=== PATIENT | female | born 1945 | race Hispanic/Latino ===

== ENCOUNTER 2018-10-09 20:47 | Emergency (ER) | payer MEDICARE ==
[2018-10-09] MEDS ORDERED: NA CHLORIDE 0.9% 1,000 ML ONE (21:51)
[2018-10-09 22:31] LABS: Absolute Lymphocytes (CBC) 1.1 K/uL (0.7-4.9); Basophils % 0.7 % (0-1.3); Lymphocytes % 29.6 % (15.3-44.8); MPV 8.3 fL (7.6-11.3); Monocytes % 7.6 % (3.3-12.3); Protime INR 0.92; RBC Red Blood Cell Count 3.77 M/uL (3.86-4.86)
[2018-10-09 22:41] LABS: Urine Blood TRACE (NEG); Urine Glucose NEGATIVE (NEG); Urine Protein NEGATIVE (NEG)
[2018-10-09 22:49] LABS: ALT/SGPT 17 U/L (12-78); AST/SGOT 20 U/L (15-37); Albumin 3.4 g/dL (3.4-5.0); Alkaline Phosphatase 85 U/L (45-117); BUN Blood Urea Nitrogen 12 mg/dL (7-18); Bicarbonate 26 mmol/L (21-32); Bilirubin Direct < 0.1 mg/dL (0-0.2); Bilirubin Total 0.3 mg/dL (0.2-1.0); Glucose Level 94 mg/dL (74-106); Magnesium 2.4 mg/dL (1.8-2.4); NT PRO-BNP 234 pg/mL (<125); Protein, Total 7.7 g/dL (6.4-8.2); Sodium Level 139 mmol/L (136-145); Troponin (Emerg Dept Use Only) < 0.02 ng/mL (0.0-0.045)
--- NOTE | 2018-10-09 23:01 | ER ---
Nurse's Notes [facility] Name: Estrellita Gutierrez Age: 73 yrs Sex: Female : 1945 Arrival Date: 10/09/2018 Time: 20:50 Bed 23 Private MD: Diagnosis: Edema, unspecified;Cellulitis and acute lymphangitis of other parts of limb Presentation: 10/09 20:55 Presenting complaint: Patient states: that for the past 3 days she has been having fc swelling to both her ankles (left worse than right). Also having headaches, achy body and increased sweating. Transition of care: patient was not received from another setting of care. 20:55 Method Of Arrival: Ambulatory fc 21:09 Onset of symptoms was October 06, 2018. Risk Assessment: Do you want to hurt yourself or fc someone else? Patient reports no desire to harm self or others. Initial Sepsis Screen: Does the patient meet any 2 criteria?. Care prior to arrival: Medication(s) given: Motrin, 400 mg, last at 1700. 21:09 Acuity: ADY 3 22:23 Initial Sepsis Screen: Does the patient have a suspected source of infection?. mg2 Historical: - Allergies: 21:12 No Known Allergies; fc - Home Meds: 21:12 ibandronate 150 mg oral tab 1 tab once moly [Active]; levothyroxine 50 mcg tab 1 tab fc once daily [Active]; - PMHx: 21:12 Hypothyroidism; Osteoporosis; fc - PSHx: 21:12 Tubal ligation; bilateral feet surg; fc - Immunization history:: Last tetanus immunization: up to date. - Social history:: Smoking status: Patient/guardian denies using tobacco, Patient uses alcohol, occasionally. - Ebola Screening: : Patient negative for fever greater than or equal to 101.5 degrees Fahrenheit, and additional compatible Ebola Virus Disease symptoms Patient denies exposure to infectious person Patient denies travel to an Ebola-affected area in the 21 days before illness onset. - Family history:: not pertinent. Screenin:55 Abuse screen: Denies threats or abuse. Nutritional screening: No deficits noted. fc Tuberculosis screening: No symptoms or risk factors identified. Fall Risk None identified. Assessment: 22:07 Reassessment: patient sent to ultrasound. mg2 22:21 General: Appears in no apparent distress. comfortable, Behavior is calm, cooperative. mg2 Pain: Complains of pain in left leg and right leg Pain does not radiate. Pain currently is 2 out of 10 on a pain scale. Quality of pain is described as aching, Pain began gradually, 2-3 days ago. Is intermittent. Neuro: Level of Consciousness is awake, alert, obeys commands, Oriented to person, place, time, situation. Cardiovascular: Capillary refill < 3 seconds Patient's skin is warm and dry. Respiratory: Airway is patent Respiratory effort is even, unlabored, Respiratory pattern is regular, symmetrical. GI: No signs and/or symptoms were reported involving the gastrointestinal system. : No signs and/or symptoms were reported regarding the genitourinary system. EENT: No signs and/or symptoms were reported regarding the EENT system. Derm: Skin is intact, is healthy with good turgor, Skin is pink, warm \T\ dry. normal, redness in both lower leg. Musculoskeletal: Circulation, motion, and sensation intact. Capillary refill < 3 seconds, Swelling present in left leg and right leg. 23:22 Reassessment: Patient appears in no apparent distress at this time. Patient is alert, lp1 oriented x 3, equal unlabored respirations, skin warm/dry/pink. Patient and aware of pending discharge. Vital Signs: 20:55 BP 120 / 75; Pulse 74; Resp 18; Temp 98.7(O); Pulse Ox 97% on R/A; Weight 64.41 kg (R); fc Height 5 ft. 0 in. (152.40 cm) (R); Pain 6/10; 22:23 BP 115 / 76; Pulse 72; Resp 18; Temp 98.7; Pulse Ox 100% on R/A; mg2 23:23 BP 115 / 76; Pulse 72; Resp 14; Pulse Ox 98% on R/A; lp1 20:55 Body Mass Index 27.73 (64.41 kg, 152.40 cm) fc ED Course: 20:50 Patient arrived in ED. mr 20:55 Arm band placed on Patient placed in an exam room, on a stretcher. fc 20:55 Patient has correct armband on for positive identification. Placed in gown. Bed in low fc position. Call light in reach. Pulse ox on. NIBP on. 20:55 No provider procedures requiring assistance completed. fc 21:03 Rehan Clemens MD is Attending Physician. robert 21:07 Shin Romero, RN is Primary Nurse. mg2 21:10 Triage completed. fc 21:43 XRAY Chest (1 view) In Process Unspecified. EDMS 22:00 First set of blood cultures drawn by me, Second set of blood cultures drawn by me. mg2 22:20 US Extremity Venous W Compression Iván In Process Unspecified. EDMS 22:22 Inserted saline lock: 20 gauge in right antecubital area, using aseptic technique. mg2 22:45 Report received from SHUKRI Melissa. lp1 23:25 IV discontinued, No redness/swelling at site. Pressure dressing applied. lp1 Administered Medications: 22:20 Drug: NS 0.9% 1000 ml Route: IV; Rate: 125 ml/hr; Site: right antecubital; mg2 23:22 Follow up: IV Status: IV converted to saline lock lp1 23:10 Drug: Rocephin - (cefTRIAXone) 1 grams Route: IVPB; Infused Over: 30 mins; Site: right lp1 antecubital; 23:25 Follow up: IV Status: Completed infusion; IV Intake: 10ml lp1 23:10 Drug: Bactrim (160 mg-800 mg (DS) 1 tablet Route: PO; lp1 23:25 Follow up: Response: No adverse reaction lp1 23:10 Drug: Doxycycline 200 mg Route: PO; lp1 23:25 Follow up: Response: No adverse reaction lp1 Intake: 23:25 IV: 10ml; Total: 10ml. lp1 Outcome: 23:01 Discharge ordered by . [facility] 23:20 Discharged to home ambulatory, with significant other. lp1 23:20 Condition: good 23:20 Discharge instructions given to patient, significant other, Instructed on discharge instructions, follow up and referral plans. medication usage, Demonstrated understanding of instructions, follow-up care, medications, Prescriptions given X 3. 23:25 Patient left the ED. lp1 Signatures: Dispatcher [employer] EDTX Rehan Clemens MD MD cha Rivera, Mary mr Tobin, Allison RN RN Katharina Frank RN RN [facility] Shin Romero, SHUKRI RN mg2 Corrections: (The following items were deleted from the chart) 22:32 22:23 Pulse 72bpm; Resp 18bpm; Pulse Ox 100% RA; Temp 98.7F; mg2 mg2 10/10 00:14 00:14 Patient left the ED. lp1 lp1
--- NOTE | 2018-10-09 23:01 | EDPHYS ---
Physician Documentation [facility] Name: Estrellita Gutierrez Age: 73 yrs Sex: Female : 1945 Arrival Date: 10/09/2018 Time: 20:50 Bed 23 Private MD: ED Physician Rehan Clemens HPI: 10/09 21:27 This 73 yrs old Female presents to ER via Ambulatory with complaints of Ankle robert Swelling, Trouble Walking. 21:27 The patient presents with decreased range of motion, pain, swelling, tenderness. The robert complaints affect the right leg and left leg. Onset: The symptoms/episode began/occurred 3 day(s) ago. Context: The problem was sustained. Associated signs and symptoms: The patient has no apparent associated signs or symptoms. Modifying factors: The symptoms are alleviated by nothing. Severity of symptoms: At their worst the symptoms were. The patient has not experienced similar symptoms in the past. Historical: - Allergies: 21:12 No Known Allergies; fc - Home Meds: 21:12 ibandronate 150 mg oral tab 1 tab once moly [Active]; levothyroxine 50 mcg tab 1 tab fc once daily [Active]; - PMHx: 21:12 Hypothyroidism; Osteoporosis; fc - PSHx: 21:12 Tubal ligation; bilateral feet surg; fc - Immunization history:: Last tetanus immunization: up to date. - Social history:: Smoking status: Patient/guardian denies using tobacco, Patient uses alcohol, occasionally. - Ebola Screening: : Patient negative for fever greater than or equal to 101.5 degrees Fahrenheit, and additional compatible Ebola Virus Disease symptoms Patient denies exposure to infectious person Patient denies travel to an Ebola-affected area in the 21 days before illness onset. - Family history:: not pertinent. ROS: 21:27 Constitutional: Negative for fever, chills, and weight loss, Eyes: Negative for injury, robert pain, redness, and discharge, ENT: Negative for injury, pain, and discharge, Neck: Negative for injury, pain, and swelling, Cardiovascular: Negative for chest pain, palpitations, and edema, Respiratory: Negative for shortness of breath, cough, wheezing, and pleuritic chest pain, Abdomen/GI: Negative for abdominal pain, nausea, vomiting, diarrhea, and constipation, Back: Negative for injury and pain, : Negative for injury, bleeding, discharge, and swelling, Skin: Negative for injury, rash, and discoloration, Neuro: Negative for headache, weakness, numbness, tingling, and seizure, Psych: Negative for depression, anxiety, suicide ideation, homicidal ideation, and hallucinations, Allergy/Immunology: Negative for hives, rash, and allergies, Endocrine: Negative for neck swelling, polydipsia, polyuria, polyphagia, and marked weight changes, Hematologic/Lymphatic: Negative for swollen nodes, abnormal bleeding, and unusual bruising. 21:27 MS/extremity: Positive for pain, swelling, tenderness, of the right leg and left leg. Exam: 21:27 Constitutional: This is a well developed, well nourished patient who is awake, alert, robert and in no acute distress. Head/Face: Normocephalic, atraumatic. Eyes: Pupils equal round and reactive to light, extra-ocular motions intact. Lids and lashes normal. Conjunctiva and sclera are non-icteric and not injected. Cornea within normal limits. Periorbital areas with no swelling, redness, or edema. ENT: Nares patent. No nasal discharge, no septal abnormalities noted. Tympanic membranes are normal and external auditory canals are clear. Oropharynx with no redness, swelling, or masses, exudates, or evidence of obstruction, uvula midline. Mucous membranes moist. Neck: Trachea midline, no thyromegaly or masses palpated, and no cervical lymphadenopathy. Supple, full range of motion without nuchal rigidity, or vertebral point tenderness. No Meningismus. Chest/axilla: Normal chest wall appearance and motion. Nontender with no deformity. No lesions are appreciated. Cardiovascular: Regular rate and rhythm with a normal S1 and S2. No gallops, murmurs, or rubs. Normal PMI, no JVD. No pulse deficits. Respiratory: Lungs have equal breath sounds bilaterally, clear to auscultation and percussion. No rales, rhonchi or wheezes noted. No increased work of breathing, no retractions or nasal flaring. Abdomen/GI: Soft, non-tender, with normal bowel sounds. No distension or tympany. No guarding or rebound. No evidence of tenderness throughout. Back: No spinal tenderness. No costovertebral tenderness. Full range of motion. Skin: Warm, dry with normal turgor. Normal color with no rashes, no lesions, and no evidence of cellulitis. Neuro: Awake and alert, GCS 15, oriented to person, place, time, and situation. Cranial nerves II-XII grossly intact. Motor strength 5/5 in all extremities. Sensory grossly intact. Cerebellar exam normal. Normal gait. Psych: Awake, alert, with orientation to person, place and time. Behavior, mood, and affect are within normal limits. 21:27 Musculoskeletal/extremity: Extremities: erythema, pain, swelling, tenderness, ROM: full active range of motion, full passive range of motion, Circulation is intact in all extremities. Sensation intact. DVT Exam: negative Homans' sign noted on exam, no appreciated bluish discoloration, pain, swelling, tenderness, erythema, increased warmth. Vital Signs: 20:55 BP 120 / 75; Pulse 74; Resp 18; Temp 98.7(O); Pulse Ox 97% on R/A; Weight 64.41 kg (R); fc Height 5 ft. 0 in. (152.40 cm) (R); Pain 6/10; 22:23 BP 115 / 76; Pulse 72; Resp 18; Temp 98.7; Pulse Ox 100% on R/A; mg2 23:23 BP 115 / 76; Pulse 72; Resp 14; Pulse Ox 98% on R/A; lp1 20:55 Body Mass Index 27.73 (64.41 kg, 152.40 cm) MDM: 21:03 Patient medically screened. [facility] 21:27 Data reviewed: vital signs, nurses notes, lab test result(s), EKG, radiologic studies, robert doppler, plain films. 10/09 21:27 Order name: Basic Metabolic Panel; Complete Time: 22:56 [facility] 10/09 21: Order name: CBC with Diff; Complete Time: 22:56 [facility] 10/09 21: Order name: LFT's; Complete Time: 22:56 [facility] 10/09 21:27 Order name: Magnesium; Complete Time: 22:56 [facility] 10/09 21:27 Order name: NT PRO-BNP; Complete Time: 22:56 [facility] 10/09 21:27 Order name: PT-INR; Complete Time: 22:56 [facility] 10/09 21: Order name: Troponin (emerg Dept Use Only); Complete Time: 22:56 [facility] 10/09 21:27 Order name: XRAY Chest (1 view) [facility] 10/09 21:27 Order name: Blood Culture Adult (2) [facility] 10/09 21:27 Order name: Procalcitonin [facility] 10/09 21:27 Order name: US Extremity Venous W Compression Iván [facility] 10/09 21:27 Order name: Urine Culture [facility] 10/09 22:09 Order name: Urine Dipstick--Ancillary (enter results); Complete Time: 22:56 [facility] 10/09 21: Order name: EKG; Complete Time: 21:30 [facility] 10/09 21: Order name: Cardiac monitoring; Complete Time: 21:59 [facility] 10/09 21: Order name: EKG - Nurse/Tech; Complete Time: 22:21 [facility] 10/09 21:27 Order name: IV Saline Lock; Complete Time: 22:21 [facility] 10/09 21:27 Order name: Labs collected and sent; Complete Time: 22:21 [facility] 10/09 21:27 Order name: O2 Per Protocol; Complete Time: 22:21 [facility] 10/09 21:27 Order name: O2 Sat Monitoring; Complete Time: 22:21 [facility] 10/09 21:27 Order name: Urine Dipstick-Ancillary (obtain specimen); Complete Time: 22:20 [facility] Administered Medications: 22:20 Drug: NS 0.9% 1000 ml Route: IV; Rate: 125 ml/hr; Site: right antecubital; mg2 23:22 Follow up: IV Status: IV converted to saline lock lp1 23:10 Drug: Rocephin - (cefTRIAXone) 1 grams Route: IVPB; Infused Over: 30 mins; Site: right lp1 antecubital; 23:25 Follow up: IV Status: Completed infusion; IV Intake: 10ml lp1 23:10 Drug: Bactrim (160 mg-800 mg (DS) 1 tablet Route: PO; lp1 23:25 Follow up: Response: No adverse reaction lp1 23:10 Drug: Doxycycline 200 mg Route: PO; lp1 23:25 Follow up: Response: No adverse reaction lp1 Disposition: 10/09/18 23:01 Discharged to Home. Impression: Edema, unspecified, Cellulitis and acute lymphangitis of other parts of limb. - Condition is Stable. - Discharge Instructions: Edema, Cellulitis, Adult, [id number], Edema, [id number]. - Prescriptions for Tylenol- Codeine #3 300-30 mg Oral Tablet - take 1 tablet by ORAL route every 4 hours As needed; 20 tablet. Doxycycline Hyclate 100 mg Oral Tablet - take 1 tablet by ORAL route every 12 hours; 20 tablet. Bactrim DS 800- 160 mg Oral Tablet - take 1 tablet by ORAL route every 12 hours for 10 days; 20 tablet. - Medication Reconciliation Form, Thank You Letter, Antibiotic Education, Prescription Opioid Use form. - Follow up: Private Physician; When: 2 - 3 days; Reason: Recheck today's complaints, Continuance of care, Re-evaluation by your physician. - Problem is new. - Symptoms have improved. Signatures: Dispatcher [employer] EDMS Rehan Clemens MD MD cha Chretien, Felicia, RN RN fc Katharina Frank RN RN lp1 Shin Romero RN RN mg2 Corrections: (The following items were deleted from the chart) 10/10 00:14 10/09 23:01 10/09/2018 23:01 Discharged to Home. Impression: Edema, unspecified; lp1 Cellulitis and acute lymphangitis of other parts of limb. Condition is Stable. Forms are Medication Reconciliation Form, Thank You Letter, Antibiotic Education, Prescription Opioid Use. Follow up: Private Physician; When: 2 - 3 days; Reason: Recheck today's complaints, Continuance of care, Re-evaluation by your physician. Problem is new. Symptoms have improved. robert
[2018-10-09] MEDS ORDERED: CEFTRIAXONE/SWI 1gm 1 GM/10 ML SYR ONE (23:24)
[2018-10-09] MEDS ORDERED: SMZ./TMP. 800/160 MG TABLET ONE (23:24)
[2018-10-09] MEDS ORDERED: DOXYCYCLINE 100 MG CAP PO ONE (23:24)
--- NOTE | 2018-10-10 00:13 | RAD REPORT ---
EXAM DESCRIPTION: USExtrem Venous W Compress Bil10/09/2018 10:20 pm CLINICAL HISTORY: Bilateral leg swelling COMPARISON: none FINDINGS: The common femoral, superficial femoral, popliteal and posterior tibial veins bilaterally are compressible and demonstrate augmentation. Doppler demonstrates good flow. IMPRESSION: No evidence of deep venous thrombosis involving either lower extremity.
--- NOTE | 2018-10-10 00:18 | RAD REPORT ---
EXAM DESCRIPTION: Judie Single View10/09/2018 9:56 pm CLINICAL HISTORY: Cough COMPARISON: 2013 FINDINGS: 5 millimeter nodular opacity overlies mid to lower left lung. Right lung appears clear of acute infiltrate. The heart is normal size IMPRESSION: 5 millimeter nodular opacity overlying the left lung may represent a pulmonary nodule or confluence of ribs and vessels. Follow up PA and lateral chest series in 3 months recommended for re-evaluation
--- NOTE | 2018-10-10 08:26 | EKG ---
Test Date: 2018-10-09 Test Time: 21:43:58 [employer] Captain: MEASUREMENT RESULTS: Intervals: Rate: 68 NM: 176 QRSD: 94 QT: 394 QTc: 418 [place]: P: 49 NM: 176 QRS: -6 T: 6 INTERPRETIVE STATEMENTS: Normal sinus rhythm Minimal voltage criteria for LVH, may be normal variant Borderline ECG No previous ECG available for comparison Electronically Signed On 10-10-18 08:24:52 CDT by Max Mathew
== END 2018-10-10 00:14 | disposition home or self-care (01) ==
LOC: ER 20:47
DX: L03.116 Cellulitis of left lower limb (principal); L03.115 Cellulitis of right lower limb; L03.126 Acute lymphangitis of left lower limb; L03.125 Acute lymphangitis of right lower limb; E03.9 Hypothyroidism, unspecified
CPT/HCPCS: 96361; 93005; 87040 ×2; 87088; 85025; 87086; 80048; 36415; 83735; 85610; 80076; 81003; 84484; 84145; 83880; 71045; 93970; 96374; 99284; J0696; J7030